=== PATIENT | male | born 1965 | race Caucasian/White ===

== ENCOUNTER 2022-04-23 09:59 | Outpatient (CLI) | payer MEDICARE, MEDICAID, SELFPAY ==
[2022-04-23 15:00] LABS: Albumin* 4.2 g/dL (3.3-5.0); Chloride* 109 mmol/L (96-114); Sodium* 143 mmol/L (135-149)
[2022-04-23 15:01] LABS: Potassium* 3.9 mmol/L (3.6-5.1)
[2022-04-23 15:02] LABS: Cholesterol* 166 mg/dL (90-199)
[2022-04-23 15:03] LABS: Alanine Aminotransferase* 27 U/L (4-50); Alkaline Phosphatase* 68 U/L (40-150); Aspartate Amino Transferase* 26 U/L (12-35); Bilirubin Total* 0.3 mg/dL (0.1-1.5); Blood Urea Nitrogen* 18 mg/dL (7-30); Carbon Dioxide* 22 mmol/L (20-32); Estimated Glomerular Filt Rate 88 ml/min; Glucose* 153 mg/dL (60-115); Total Protein* 7.2 g/dL (6.0-8.3); Triglycerides* 154 mg/dL (40-149)
[2022-04-23 15:04] LABS: Calcium* 9.1 mg/dL (8.4-10.6); HDL Cholesterol* 56 mg/dL (>=40); LDL Cholesterol Calculated 79 mg/dL (<100)
[2022-04-23 15:17] LABS: Carbamazepine Tegretol* 5.1 ug/mL (4.0-12.0)
[2022-04-23 15:34] LABS: PSA Screen* 0.98 ng/mL (0.10-4.00)
== END 2022-04-23 10:00 | disposition home or self-care (01) ==
PROVIDERS: PCP Family Medicine; Visit Provider Family Medicine
DX: Z00.00 Encounter for general adult medical examination without abnormal findings (principal); G40.909 Epilepsy, unspecified, not intractable, without status epilepticus; E78.5 Hyperlipidemia, unspecified; R73.9 Hyperglycemia, unspecified; Z12.5 Encounter for screening for malignant neoplasm of prostate
CPT/HCPCS: 80053; 80061; 80156; 80164; 80165; 84153

== ENCOUNTER 2022-05-07 10:04 | Outpatient (RCR) | payer MEDICARE, MEDICAID, SELFPAY ==
--- NOTE | 2022-05-07 14:18 | SLP.EVAL ---
Melita Please review, sign and return Thanks Adelaida Mcintyre ACCOUNT RESOLUTION SPECIALIST ACCOUNT RESOLUTION SPECIALIST Nigel Manning Start: 05/07/22 11:04 Freq: Status: Active Protocol: Document 05/07/22 11:04 JAZ (Rec: 05/07/22 11:16 Carine [id number]) E-signed By Adelaida Mcintyre CCC, ACCOUNT RESOLUTION SPECIALIST ACCOUNT RESOLUTION SPECIALIST System Review History & Reason For Referral Type of Speech Evaluation Dysphagia Evaluation Rehabilitation Order Evaluation Date of Order 05/01/22 Reason for Referral swallowing difficulty Medical Diagnosis Severe MR, Epilepsy, OCD Treatment Diagnosis Dysphagia Patient Orientation Orientation & Mental Status Severe MR, patient is nonverbal and unable to follow directions or respond. ACCOUNT RESOLUTION SPECIALIST Initial Assessment/POC Subjective Information Subjective/Pain Comment Patient brought to the room via wheelchair. Two of his caregivers from the fdc are with him and provide information. Assessment & Impression Assessment/Impression Patient is a 56 year old male with severe mental retardation , epilepsy, OCD and dysphagia. He has been in a fdc since age 15. He is currently, and has been for years on a blended diet and thickened liquids. Staff report that when he drinks thin liquid he chokes. He can feed himself to a degree but needs assistance due to the fact that he takes very large bites/drinks of food and liquid. ORAL MOTOR FUNCTION AND DENTITION Patient unable to follow directions for tongue and lip movements. He exhibits low tone in his tongue and lips and drools. He has adequate dentition for his blended diet . THIN LIQUID Patient drank from a glass with thin liquid. He took 3 sips and coughed after 2 of the trials. MILDLY THICK LIQUID Patient drank from a glass of mildly thick liquid. He did not cough after any of the 5 trials of mildly thick liquid. PUREE Patient given a teaspoon of puree. He was able to manipulate and swallow without signs of aspiration. IMPRESSIONS AND RECOMMENDATIONS Patient exhibits signs of aspiration with thin liquids. Recommend pureed/blended solids and mildly thick liquid . Because of patient's significant mental retardation , a modified barium swallow study is not recommended. Therapist Signature & License # I Certify That Therapy Services Provided Therapist Signature & License Number Adelaida Mcintyre CCC-ACCOUNT RESOLUTION SPECIALIST, # [id number] Physician Signature Signature of Physician Indicates Medically Needed Services Physician Signature & Date Required Please Sign/Date Here Speech/Language Pathology Billing Units Billing Units Eval Swallow Function 1
== END 2022-10-17 23:59 | disposition home or self-care (01) ==
PROVIDERS: PCP Family Medicine; Visit Provider Physician Assistant Medical
DX: R13.10 Dysphagia, unspecified (principal); F42.9 Obsessive-compulsive disorder, unspecified; F72 Severe intellectual disabilities; G40.909 Epilepsy, unspecified, not intractable, without status epilepticus; Z51.89 Encounter for other specified aftercare
CPT/HCPCS: 92610

== ENCOUNTER 2023-03-20 10:51 | Outpatient (CLI) | payer MEDICARE, MEDICAID, SELFPAY ==
[2023-03-20 22:27] LABS: Albumin* 4.2 g/dL (3.3-5.0); Chloride* 104 mmol/L (96-114); Sodium* 140 mmol/L (135-149)
[2023-03-20 22:28] LABS: Potassium* 3.9 mmol/L (3.6-5.1)
[2023-03-20 22:29] LABS: Cholesterol* 144 mg/dL (90-199); Triglycerides* 120 mg/dL (40-149)
[2023-03-20 22:30] LABS: Alanine Aminotransferase* 22 U/L (4-50); Alkaline Phosphatase* 63 U/L (40-150); Anion Gap 12 mEq/L (7-15); Aspartate Amino Transferase* 21 U/L (12-35); Bilirubin Total* 0.2 mg/dL (0.1-1.5); Blood Urea Nitrogen* 16 mg/dL (7-30); Carbon Dioxide* 24 mmol/L (20-32); Creatinine* 0.9 mg/dL (0.5-1.5); Estimated Glomerular Filt Rate 99 ml/min; Glucose* 132 mg/dL (60-115); HDL Cholesterol* 53 mg/dL (>=40); LDL Cholesterol Calculated 67 mg/dL (<100); Total Protein* 7.1 g/dL (6.0-8.3)
[2023-03-20 22:31] LABS: Calcium* 9.2 mg/dL (8.4-10.6)
[2023-03-20 22:52] LABS: PSA Screen* 0.65 ng/mL (0.10-4.00)
[2023-03-20 23:06] LABS: Hepatitis C Virus Antibody* Negative (Negative)
[2023-03-21 00:20] LABS: Carbamazepine Tegretol* 4.1 ug/mL (4.0-12.0)
== END 2023-03-20 10:52 | disposition home or self-care (01) ==
PROVIDERS: PCP Family Medicine; Visit Provider Family Medicine
DX: G40.909 Epilepsy, unspecified, not intractable, without status epilepticus (principal); Z79.899 Other long term (current) drug therapy; R63.4 Abnormal weight loss; R73.9 Hyperglycemia, unspecified; E78.00 Pure hypercholesterolemia, unspecified
CPT/HCPCS: 80053; 80061; 80156; 80164; 80165; 84153; 84443; 86803

== ENCOUNTER 2023-06-12 10:11 | Outpatient (RCR) | payer MEDICARE, MEDICAID, SELFPAY ==
--- NOTE | 2023-06-12 11:29 | SLP.EVAL ---
Dr. Nix Please review, sign and return. Thank you Adelaida Mcintyre, SUBMARINE OPERATOR SUBMARINE OPERATOR Niegl Manning Start: 06/12/23 11:03 Freq: Status: Active Protocol: Document 06/12/23 11:04 JAZ (Rec: 06/12/23 11:29 HJS [id number]) E-signed By Adelaida Mcintyre, JULIANNA, SUBMARINE OPERATOR SUBMARINE OPERATOR System Review History & Reason For Referral Type of Speech Evaluation Dysphagia Evaluation Rehabilitation Order Evaluation Date of Order 06/09/23 Reason for Referral dysphagia Medical Diagnosis Severe MR, Eplilepsy, OCD, dysphagia Treatment Diagnosis dysphagia Patient Orientation Orientation & Mental Status Severe MR, non verbal and unable to follow directions or respond SUBMARINE OPERATOR Initial Assessment/POC Subjective Information Subjective/Pain Comment Patient brought to the room via wheelchair. Two of his caregivers from the residential are with him and provide information. Caregiver's Name [place] mcgee Rochelle Assessment & Impression Assessment/Impression Patient is a 57 year old male referred for a swallow evaluation for dysphagia. He has severe MR, epilepsy, OCD and dysphagia. He has long standing dysphagia and was evaluated by this therapist last year. At that time it was recommended that he have pureed solids and mildly thick (nectar) liquids. Staff report that he has been on puree/blended diet and thickened liquids for years. When he sneaks a drink of water from the sink he coughs significantly. ORAL MOTOR FUNCTION AND DENTITION Patient is unable to follow directions for tongue and lip movements. He exhibits low tone in his tongue and lips and drools. He has adequate dentition for puree/blended diet. He chronically grinds his teeth. THIN LIQUID Patient drank thin liquid from a glass. He coughed each time . MILDLY THICK LIQUID (NECTAR) Patient took sips of mildly thick liquid from a glass x3. No coughing exhibited with any trial. PUREE Patient given 3 trials of puree. He does not exhibit any oral manipulation, he just swallows. Staff report he never chews. IMPRESSIONS AND RECOMMENDATIONS Patient exhibits signs of aspiration with thin liquid but not with mildly thick liquid and puree. He does not chew so solids requiring chewing are not recommended. Recommend a puree/blended diet and mildly thick liquid. Because he exhibits aspiration symptoms in the clinical setting and because of his significant mental disability he is not appropriate for a modified barium swallow study. Because of his severe mental disability his condition will not ever improve so he will always need thickened liquid. Therapist Signature & License # I Certify That Therapy Services Provided Therapist Signature & License Number Adelaida Mcintyre, [facility]-SUBMARINE OPERATOR, # [id number] Physician Signature Signature of Physician Indicates Medically Needed Services Physician Signature & Date Required Please Sign/Date Here Speech/Language Pathology Billing Units Billing Units Eval Swallow Function 1
== END 2023-10-10 23:59 | disposition home or self-care (01) ==
PROVIDERS: PCP Family Medicine; Visit Provider Family Medicine
DX: F42.9 Obsessive-compulsive disorder, unspecified (principal); R13.10 Dysphagia, unspecified; F79 Unspecified intellectual disabilities; G40.909 Epilepsy, unspecified, not intractable, without status epilepticus; Z51.89 Encounter for other specified aftercare
CPT/HCPCS: 92610

== ENCOUNTER 2023-09-17 15:14 | Outpatient (RCR) | payer MEDICARE, MEDICAID, SELFPAY | END 2023-12-24 11:46 | disposition home or self-care (01) | PROVIDERS: PCP Family Medicine; Visit Provider Family Medicine | DX: R26.81 Unsteadiness on feet (principal); F79 Unspecified intellectual disabilities; Z51.89 Encounter for other specified aftercare | CPT/HCPCS: 97166 ==

== ENCOUNTER 2024-03-09 10:35 | Outpatient (CLI) | payer MEDICARE, MEDICAID, SELFPAY | END 2024-03-09 10:36 | disposition home or self-care (01) | PROVIDERS: PCP Family Medicine; Visit Provider Family Medicine | DX: R73.03 Prediabetes (principal); R63.4 Abnormal weight loss; E78.5 Hyperlipidemia, unspecified; K59.01 Slow transit constipation; F48.9 Nonpsychotic mental disorder, unspecified; F69 Unspecified disorder of adult personality and behavior; F79 Unspecified intellectual disabilities; G40.909 Epilepsy, unspecified, not intractable, without status epilepticus; Z12.5 Encounter for screening for malignant neoplasm of prostate; Z79.899 Other long term (current) drug therapy | CPT/HCPCS: 80053; 80061; 80156; 80164; 80165; G0103 ==

== ENCOUNTER 2024-08-05 14:58 | Outpatient (CLI) | payer MEDICARE, MEDICAID, SELFPAY ==
--- NOTE | 2024-08-05 15:00 | CRLHL7_ITS ---
For Patients: As a result of the Century Cures Act, medical imaging exams and procedure reports are released immediately into your electronic medical record. You may view this report before your referring provider. If you have questions, please contact your health care provider. XR DXA Bone Mineral Density (BMD) Reason for exam: Long-term current drug therapy. Bone density screening. Current height (in): 72. Weight (lb): 152. Menopause age: N/A. Ethnicity: White. 1. Have you had a previous hip or vertebral fracture? No. 2. Have you had any fractures during your adult life which did not result from significant trauma (e.g., auto accident)? No. 3. Did either of your parents have a hip fracture? No. 4. Do you smoke? No. 5. Have you ever taken Glucocorticoids? No. 6. Do you have rheumatoid arthritis? No. 7. Do you have secondary osteoporosis? No. 8. Do you drink 3 or more alcoholic drinks per day? No. 9. Are you being treated for osteoporosis? No. 10. Have you ever taken any of the following medications: Actonel, Evista, Fosamax, Miacalcin, Reclast, Boniva, Forteo, HRT (i.e., estrogen/hormone therapy), Protelos, Prolia, Vitamin D, Calcium, other ??? please specify. ANSWER: Yes, vitamin D. 11. Do you have any of the following medical conditions: Anorexia or bulimia, asthma or emphysema, end stage renal disease, hyperparathyroidism, any seizure disorders, cancer, inflammatory bowel diseases, hysterectomy, other ??? please specify. ANSWER: Yes, any seizure disorders. 12. What was your maximum height (inches)? 72. 13. Do you perform weight bearing exercise regularly? No. 14. Do you regularly consume dairy products? Yes. 15. Do you drink caffeinated beverages? No. TECHNIQUE: Bone mineral density study was performed using the [employer]. FINDINGS: The results of the study expressed as bone mineral density (BMD) are as follows: Lumbar spine L1 to L4: BMD: 0.981 g/cm2. T-score: -1.0. Z-score: -0.4 Neck Left: BMD: 0.610 g/cm2. T-score: -2.4. Z-score: -1.4 Right: BMD: 0.633 g/cm2. T-score: -2.2. Z-score: -1.2 Total Left: BMD: 0.759 g/cm2. T-score: -1.8. Z-score: -1.4 Right: BMD: 0.780 g/cm2. T-score: -1.7. Z-score: -1.2 IMPRESSION: Osteopenia. *Comparison exams done prior to 08/2019 were performed on different unit, spotflux. FRAX 10-year Fracture Risk Major Osteoporotic Fracture: 7.5% Hip Fracture: 1.8% Reported Risk Factors: [place] () Neck BMD=0.610, BMI=20.6 Jeramy Chakraborty M.D. Diagnostic Radiologist [email or web address] STACEY/layla rich/Dictated by: Jeramy Chakraborty MD @ 08/06/2024 12:47:00 PM (Electronically Signed)
== END 2024-08-05 14:59 | disposition home or self-care (01) ==
LOC: RAD 14:59
PROVIDERS: PCP Family Medicine; Visit Provider Psychiatry & Neurology Epilepsy
DX: Z13.820 Encounter for screening for osteoporosis (principal); M85.89 Other specified disorders of bone density and structure, multiple sites; Z79.899 Other long term (current) drug therapy
CPT/HCPCS: 77080

== ENCOUNTER 2025-03-18 08:18 | Outpatient (CLI) | payer MEDICARE, MEDICAID, SELFPAY | END 2025-03-18 08:19 | disposition home or self-care (01) | LOC: NFLDREF 03-25 05:44 | PROVIDERS: PCP Family Medicine; Referring Provider Family Medicine; Visit Provider Psychiatry & Neurology Epilepsy | DX: G40.909 Epilepsy, unspecified, not intractable, without status epilepticus (principal) | CPT/HCPCS: 80053 ==

== ENCOUNTER 2025-03-18 11:43 | Outpatient (CLI) | payer MEDICARE, MEDICAID, SELFPAY ==
[2025-03-18 21:26] LABS: Cholesterol* 162 mg/dL (90-199); Glucose* 81 mg/dL (60-115); HDL Cholesterol* 56 mg/dL (>=40); Triglycerides* 115 mg/dL (40-149)
== END 2025-03-18 11:44 | disposition home or self-care (01) ==
PROVIDERS: PCP Family Medicine; Visit Provider Nurse Practitioner Psychiatric/Mental Health
DX: Z79.899 Other long term (current) drug therapy (principal); G40.909 Epilepsy, unspecified, not intractable, without status epilepticus
CPT/HCPCS: 80053; 80061; 82947